=== PATIENT | female | born 1995 | race Caucasian/White ===

== ENCOUNTER 2022-03-31 13:31 | Emergency (ER) | payer OTHER ==
[2022-03-31 14:18] LABS: BASOPHIL 0.3 % (0-2); EOSINOPHIL 0.4 % (0-5); HGB 12.4 g/dl (12.5-16.0); LYMPHOCYTE 16.4 % (15-48); MCH 30.5 pg (25.0-31.0); MCHC 34.4 g/dL (32.0-36.0); MCV 88.7 fL (78.0-100.0); MONOCYTE 4.9 % (0-12); MPV 8.9 fL (6.0-9.5); NEUTROPHIL 77.6 % (41-80); NRBC 0; PLT 310 K/uL (150-400); RBC 4.06 M/uL (4.20-5.40); RDW 12.1 % (11.5-14.0); WBC 11.5 K/uL (4.0-10.5)
[2022-03-31 14:38] LABS: BUN/CREAT RATIO (CALC) 15.9 RATIO; CREATININE 0.44 mg/dL (0.51-0.95); POTASSIUM 3.4 mmol/L (3.5-5.1)
[2022-03-31 16:54] LABS: BILIRUBIN NEGATIVE (NEGATIVE); BLOOD NEGATIVE Ery/uL (NEGATIVE); CLARITY CLEAR (CLEAR); COLOR YELLOW (YELLOW); GLUCOSE (U) NORMAL (NORMAL); LEUKOCYTES NEGATIVE Leu/uL (NEGATIVE); NITRITE NEGATIVE (NEGATIVE); PROTEIN NEGATIVE (NEGATIVE)
== END 2022-03-31 17:02 | disposition left against medical advice (07) ==
LOC: FER 13:31
PROVIDERS: Nurse Practitioner Family
DX: O9A.212 Injury, poisoning and certain other consequences of external causes complicating pregnancy, second trimester (principal); M25.562 Pain in left knee; M25.561 Pain in right knee; M79.641 Pain in right hand; M79.642 Pain in left hand; O44.02 Complete placenta previa NOS or without hemorrhage, second trimester; Z88.2 Allergy status to sulfonamides; Z88.1 Allergy status to other antibiotic agents; Z3A.15 15 weeks gestation of pregnancy; Z53.29 Procedure and treatment not carried out because of patient's decision for other reasons; W01.0XXA Fall on same level from slipping, tripping and stumbling without subsequent striking against object, initial encounter
CPT/HCPCS: 36415; 76815; 80048; 81003; 84702; 85025; 86900; 86901